=== PATIENT | female | born 1970 | race Caucasian/White ===

== ENCOUNTER → 2016-08-18 | Outpatient (CLI) | payer BC ==
[~2016-08-18] MED LIST: AMOX-355 PO; BC PILL PO; HYDR1TAB PO
--- NOTE | 2016-08-20 19:11 | Diagnostic Imaging Report ---
Bilateral screening mammogram The current study was also evaluated with a Computer Aided Detection (CAD) system. Indication: Screening. No current complaints stated on the questionnaire. COMPARISON: 07/18/15. FINDINGS: The breasts are composed of heterogeneously dense parenchyma which may decrease mammographic sensitivity. There is no mass, architectural distortion or suspicious cluster of calcifications. Biopsy clip in the outer aspect of the left breast is seen. Allowing for technique and positional differences, no suspicious change is seen. IMPRESSION: No significant change. ACR BI-RADS Category 2: Benign findings. Result letter will be mailed to the patient. Note: At least 10% of breast cancer is not imaged by mammography. Dictated by: Dictated on workstation # [id number]
== END ==
LOC: RAD 10:25
PROVIDERS: ATTEND Internal Medicine
DX: Z12.31 Encounter for screening mammogram for malignant neoplasm of breast (principal)
CPT/HCPCS: 77067

== ENCOUNTER → 2017-10-20 | Outpatient (CLI) | payer BC ==
--- NOTE | 2017-10-21 12:03 | Diagnostic Imaging Report ---
INDICATION: Routine screening. Comparison is made with prior study from 08/18/2016 and 07/18/2015. The current study was also evaluated with a Computer Aided Detection (CAD) system. 2-D and 3-D bilateral screening mammography with CAD was performed. The parenchymal pattern is stable. There is a biopsy clip in the outer left breast. No new mass or malignant appearing microcalcifications are seen. The axillae are unremarkable. IMPRESSION: BI-RADS category 2 No mammographic features suspicious for malignancy are identified. ACR BI-RADS Category 2: Benign findings. Result letter will be mailed to the patient. Note: At least 10% of breast cancer is not imaged by mammography. Dictated by: Dictated on workstation # [id number]
== END ==
LOC: RAD 15:46
PROVIDERS: ATTEND Internal Medicine
DX: Z12.31 Encounter for screening mammogram for malignant neoplasm of breast (principal)
CPT/HCPCS: 77067

== ENCOUNTER → 2018-10-21 | Outpatient (CLI) | payer BC ==
--- NOTE | 2018-10-24 10:14 | Diagnostic Imaging Report ---
INDICATION: Routine screening. Comparison is made with prior mammogram from 10/20/2017 and 08/18/2016. 2-D and 3-D bilateral screening mammography was performed with a Computer Aided Detection (CAD) system. FINDINGS: Both breasts are heterogeneously dense, limiting the sensitivity of mammography. Intraparenchymal lymph node in the upper-outer right breast is noted. A small intraparenchymal lymph node upper outer left breast is also seen. A biopsy clip in the left breast is again noted. No new mass or malignant appearing microcalcifications are seen. Axillae are unremarkable. IMPRESSION: No mammographic features suspicious for malignancy are identified. ACR BI-RADS Category 2: Benign findings. Result letter will be mailed to the patient. Note: At least 10% of breast cancer is not imaged by mammography. Dictated by: Dictated on workstation # [id number]
== END ==
LOC: RAD 15:27
PROVIDERS: ATTEND Internal Medicine
DX: Z12.31 Encounter for screening mammogram for malignant neoplasm of breast (principal)
CPT/HCPCS: 77067

== ENCOUNTER → 2021-06-05 | Outpatient (CLI) | payer BC ==
--- NOTE | 2021-06-06 09:35 | Diagnostic Imaging Report ---
INDICATION: Routine screening. COMPARISON is made with prior mammograms from 10/21/2018 and 10/20/2017. 2-D and 3-D bilateral screening mammography was performed with CAD. Both breasts are heterogeneously dense, limiting the sensitivity of mammography. Biopsy marker clip in the left breast is again noted. There are intraparenchymal lymph nodes in the upper and outer aspects of both breasts. No spiculated mass or malignant-appearing microcalcifications are seen. Axillae are unremarkable. IMPRESSION: BI-RADS Category 2. No mammographic features suspicious for malignancy are identified. ACR BI-RADS Category 2: Benign findings. Result letter will be mailed to the patient. Note: At least 10% of breast cancer is not imaged by mammography. Dictated by: Dictated on workstation # [id number]
== END ==
LOC: RAD 15:30
PROVIDERS: ATTEND Internal Medicine
DX: Z12.31 Encounter for screening mammogram for malignant neoplasm of breast (principal)
CPT/HCPCS: 77063; 77067

== ENCOUNTER → 2021-09-05 | Outpatient (CLI) | payer BC ==
--- NOTE | 2021-09-05 15:17 | Diagnostic Imaging Report ---
Indication: Right elbow pain 3 views of the right elbow show no fracture, dislocation or pathologic effusion. IMPRESSION: Negative right elbow. Dictated by: Dictated on workstation # [id number]
--- NOTE | 2021-09-05 15:21 | Diagnostic Imaging Report ---
INDICATION: Left knee pain 3 views of left knee show no fracture, dislocation or other acute abnormalities. IMPRESSION: Negative left knee Dictated by: Dictated on workstation # [id number]
== END ==
LOC: RAD
PROVIDERS: ATTEND Internal Medicine
DX: M25.521 Pain in right elbow (principal); M25.562 Pain in left knee
CPT/HCPCS: 73080; 73564

== ENCOUNTER → 2021-09-11 | Outpatient (CLI) | payer BC | LOC: ORTHO 09:34 | PROVIDERS: ATTEND Orthopaedic Surgery | DX: S50.01XA Contusion of right elbow, initial encounter (principal); M70.52 Other bursitis of knee, left knee; X58.XXXA Exposure to other specified factors, initial encounter | CPT/HCPCS: 99203 ==

== ENCOUNTER → 2022-02-10 | Outpatient (CLI) | payer BC ==
--- NOTE | 2022-02-10 09:56 | Diagnostic Imaging Report ---
EXAMINATION: US Abdomen limited. TECHNIQUE: Multiple real-time grayscale images were obtained over the right upper quadrant in various projections. REASON FOR EXAM: Periumbilical pain. COMPARISON: None. FINDINGS: The liver is normal in size and shape. The liver echogenicity is increased. There are no focal lesions. No intrahepatic biliary dilatation is present. The common bile duct is not dilated and measures 5 mm. The main portal vein is hepatopedal. No ascites is seen in the upper abdomen. There is no evidence of cholelithiasis, gallbladder wall thickening or pericholecystic fluid. Sonographic Borjas's sign is negative. The pancreas is not well visualized due to overlying bowel gas. The visualized portions of the IVC and aorta appear normal. The right kidney measures approximately 10.4 cm in length and has a normal appearance. IMPRESSION: 1. Hepatic steatosis. No focal hepatic lesions or ascites. 2. No evidence of cholelithiasis or acute cholecystitis. Dictated by: Dictated on workstation # [id number]
== END ==
LOC: RAD 07:15
PROVIDERS: ATTEND Internal Medicine
DX: K76.0 Fatty (change of) liver, not elsewhere classified (principal); K80.66 Calculus of gallbladder and bile duct with acute and chronic cholecystitis without obstruction
CPT/HCPCS: 76705

== ENCOUNTER → 2022-03-05 | Outpatient (CLI) | payer BC ==
[~2022-03-05] MED LIST changes: +CATHETER FLUSH 10 ML SYR IVP PRN
--- NOTE | 2022-03-05 11:35 | Diagnostic Imaging Report ---
INDICATION: Abdominal pain. TECHNIQUE: Acquisitions were acquired over the abdomen after administration of 5.47 mCi of technetium 99m Choletec. After 45 minutes the patient ingested ensure and ejection fraction was performed. FINDINGS: There is homogeneous uptake of isotope throughout the liver. Significant accumulation within the gallbladder by 45 minutes. Free flow of activity in the small bowel. Ejection fraction was calculated to be 19.1% IMPRESSION: No evidence of cystic duct obstruction however there is an abnormally low ejection fraction of 19.1% Dictated by: Dictated on workstation # [id number]
== END ==
LOC: CARD 09:15
PROVIDERS: ATTEND Internal Medicine
DX: R10.13 Epigastric pain (principal)
CPT/HCPCS: 78227; A9537

== ENCOUNTER 2022-03-19 05:37 | Outpatient (CLI) | payer BC ==
[~2022-03-19] VITALS: Ht 175.3 cm; Wt 106.0 kg
[~2022-03-19 05:37] MED LIST changes: -CATHETER FLUSH 10 ML SYR IVP PRN
[2022-03-20] MEDS ORDERED: DULO20CA PO (10:15)
[2022-03-20] MEDS ORDERED: PANT40TA52 PO (10:15)
== END 2022-03-20 10:22 ==
LOC: PREOP 05:37
PROVIDERS: ATTEND Surgery
DX: Z01.818 Encounter for other preprocedural examination (principal)

== ENCOUNTER 2022-03-25 07:33 | Day surgery (SDC) | payer BC ==
[~2022-03-25] VITALS: Ht 175.3 cm; Wt 106.0 kg
[2022-03-25] VITALS (11 sets, daily range): BP systolic 104–144; BP diastolic 48–80
[~2022-03-25 07:33] MED LIST changes: +DULO20CA PO; +PANT40TA52 PO
[2022-03-25] MEDS ORDERED: LIDOCAINE/EPI 1%-1:100,000 (XYLOCAINE) 10 ML ONE (08:08)
[2022-03-25] MEDS ORDERED: ceFAZolin INJECTION 2,000 MG in NS (IVPB) 50 ML IV ONE (08:15)
[2022-03-25] MEDS: LACTATED RINGERS 1,000 ML IV PRN ×2 (08:17→10:36)
[2022-03-25] MEDS ORDERED: proPOfol 200 MG/20 ML (DIPRIVAN) VIAL IV ONE ×2 (08:26→10:24)
[2022-03-25] MEDS ORDERED: ONDANSETRON 4 MG/2 ML (SDV) Z0FRAN ONE (08:26)
[2022-03-25] MEDS ORDERED: NEOSTIGMINE 3 MG/3 ML VIAL ONE (08:26)
[2022-03-25] MEDS ORDERED: LIDOCAINE PF 2% 5 ML (XYLOCAINE) VIAL ONE (08:26)
[2022-03-25] MEDS ORDERED: ROCURONIUM 10 MG/ML 5 ML SYRINGE IV ONE (08:26)
[2022-03-25] MEDS ORDERED: GLYCOPYRROLATE 0.2 MG/ML (ROBINUL) 2 ML VIAL ONE (08:26)
[2022-03-25] MEDS ORDERED: MIDAZOLAM 2 MG/2 ML (VERSED) VIAL ONE (08:27)
[2022-03-25] MEDS ORDERED: fentaNYL INJ 100 MCG/2 ML AMP ONE ×2 (08:27→10:31)
--- NOTE | 2022-03-25 09:25 | Progress Note-Pre Operative ---
Pre-Operative Progress Note Date of Available H&P: Mar 09, 2022 Date H&P Reviewed: Mar 25, 2022 Time H&P Reviewed: 09:26 History & Physical: H&P Reviewed, Patient Examed, No changes noted Pre-Operative Diagnosis: biliary dyskinesia LEROY JARA DO Mar 25, 2022 09:25
[2022-03-25] MEDS ORDERED: HYDROmorphone 2 MG/ML VIAL (DILAUDID) ONE (10:00)
[2022-03-25] MEDS ORDERED: KETOROLAC 30 MG/ML VIAL ONE (10:29)
[2022-03-25] MEDS ORDERED: SEVOFLURANE (ULTANE) 15 ML INHAL SOLN ONE (10:33)
[2022-03-25] MEDS ORDERED: HYDROmorphone 2 MG/ML VIAL (DILAUDID) IV ONE (11:00)
[2022-03-25] MEDS: ONDANSETRON 4 MG/2 ML (SDV) Z0FRAN IVP PRN ×2 (11:06→11:52)
[2022-03-25] MEDS ORDERED: ACHD5005 PO (11:08)
[2022-03-25] MEDS ORDERED: DOCU-143 PO (11:08)
--- NOTE | 2022-03-25 11:09 | Discharge Inst-Simple/Standard ---
Discharge Inst-Standard Discharge Medications New, Converted or Re-Newed RX: Transmitted to Pharmacy Patient Instructions/Follow Up Plan of Care/Instructions/FU: 2 weeks Daisha Activity as Tolerated: No Discharge Diet: Regular Diet Other Inst to Patient Verification and Attestation of Medical Student E/M Service A medical student performed and documented this service in my presence. I reviewed and verified all information documented by the medical student and made modifications to such information, when appropriate. I personally performed the physical exam and medical decision making. Leroy Ashton, Mar 25, 2022,11:11 LEROY ASHTON DO Mar 25, 2022 11:09
--- NOTE | 2022-03-25 11:16 | Progress Note-Post Operative ---
Post-Operative Progess Note Surgeon (s)/Oil Refinery Process Technician (s) Surgeon LEROY JARA DO Oil Refinery Process Technician: Dr. Bryson to assist in retraction dissection and closure. Pre-Operative Diagnosis biliary dyskinesia Post-Operative Diagnosis same Procedure & Operative Findings Date of Procedure 03/25/22 Procedure Performed/Findings PROCEDURE: Laparoscopic cholecystectomy with intraoperative cholangiogram. COMPLICATIONS: None. PROCEDURE: The patient was taken to the operating suite and was prepped and draped in sterile fashion. A surgical pause was performed. Just superior to the umbilicus, a 12 mm incision was made. Dissection was taken down to the fascia, which was then scored and grasped with a Max and the abdomen was then entered. A 0 Vicryl suture was placed in a fyyuya-xz-yzsgb fashion and a Jacob trocar was placed and secured. Pneumoperitoneum was achieved. A 5mm trochar place in the subxyphoid and 2 in the right upper quadrant. The gallbladder was then grasped and elevated. Adhesions to the gallbladder were taken down with cautery. The cystic duct, and cystic artery were then dissected out. Clip was placed on the distal portion of the cystic duct which was then partially transected. An arrow catheter was inserted into the duct. The cholangiogram was then performed. No filing defects and contrast made its way into the duodenum. Catheter removed. Clips were placed on proximal portion of the cystic duct and then the duct was then transected. Clips were placed along the proximal and distal portion of the cystic artery which was then transected. Hook cautery was used to dissect the gallbladder from the gallbladder fossa achieving hemostasis. The gallbladder was placed in an Endobag and removed through the 12 mm trocar site. The abdomen was then reinspected. Copious amounts of irrigation were used to irrigate the abdomen and there were no signs of active bleeding. Hemostasis had been achieved. The 12 mm fascial defect was then closed with 0 Vicryl suture that had been placed in a afxymh-gq-cwhgq fashion. The abdomen was then desufflated, the trocars were removed. The abdomen was then washed and dried. The skin was then closed using 4-0 Monocryl in a subcuticular fashion. The abdomen was washed and dried and Skin Affix was place over incisions. Patient tolerated the procedure well without any complications and was taken to the recovery room in stable condition. Anesthesia Type general Estimated Blood Loss Estimated blood loss (mL): minimal Specimens/Packing Specimens Removed gallbladder LEROY JARA DO Mar 25, 2022 11:16
--- NOTE | 2022-03-25 12:31 | Anesthesia-General Post-Op ---
General Patient Condition Mental Status/LOC: Same as Preop Cardiovascular: Satisfactory Nausea/Vomiting: Absent Respiratory: Satisfactory Pain: Controlled Complications: Absent Post Op Complications Complications None Follow Up Care/Instructions Patient Instructions None needed. Anesthesia/Patient Condition Patient Condition Patient is doing well, no complaints, stable vital signs, no apparent adverse anesthesia problems. No complications reported per nursing. D/C home per [facility] [place]: Yes JANE CARBAJAL CRNA Mar 25, 2022 12:31
--- NOTE | 2022-03-25 18:16 | Diagnostic Imaging Report ---
Indication: Intraoperative cholangiogram. 3 seconds of fluoroscopy time were utilized during intraoperative cholangiography. Submitted images showed opacification of the common hepatic and common bile ducts. No filling defect or stricture. Impression: No pathological finding revealed that the images submitted from intraoperative cholangiography. Dictated by: Dictated on workstation # [id number]
== END 2022-03-25 13:05 ==
LOC: SDC 07:33
PROVIDERS: ATTEND Surgery
DX: K81.1 Chronic cholecystitis (principal); K82.8 Other specified diseases of gallbladder; K21.9 Gastro-esophageal reflux disease without esophagitis; Z68.35 Body mass index [BMI] 35.0-35.9, adult
CPT/HCPCS: 76000; 87081

== ENCOUNTER → 2022-06-09 | Outpatient (CLI) | payer BC ==
--- NOTE | 2022-06-03 21:10 | HISTORY AND PHYSICAL ---
DATE OF SERVICE: 06/09/2022 PANENDOSCOPY HISTORY AND PHYSICAL HISTORY OF PRESENT ILLNESS: The patient is a 51-year-old white female referred by Dr. Akers for screening colonoscopy. This will be her first procedure. She is also being referred for diagnostic EGD as she reports a three-month history of intermittent dysphagia to solids with increase in her reflux symptoms. She is still having intermittent dysphagia to solids despite improvement in reflux symptoms with the initiation of pantoprazole about three months ago. She reports no change in weight. Denies melena, change in bowel habit or bright red blood per rectum. PAST MEDICAL HISTORY: Significant for obesity. MEDICATIONS: Her only medication is pantoprazole. PAST SURGICAL HISTORY: She had cholecystectomy for acalculous cholecystitis in 03/2022. She has noticed a firm area adjacent to the umbilical incision since that time without significant tenderness. She in earlier 2021 underwent TAHBSO at which time they did an elective appendectomy for reported benign disease. FAMILY HISTORY: Her brother has had several colon polyps removed. She is not aware of any family history for GI tract malignancy including colon cancer or esophageal cancer. Mother is living at the age of 76 with no health problems. Father of what was felt to be likely massive heart attack at the age of 75. SOCIAL HISTORY: She works at [employer] in the [employer]. She has no past smoking history and occasional small volume alcohol intake. REVIEW OF SYSTEMS: CONSTITUTIONAL: Denies night sweats, chills, fever or change in weight. PULMONARY: Denies cough, wheezing or shortness of breath. CARDIOVASCULAR: Denies orthopnea, PND, pedal edema or syncope. GASTROINTESTINAL: As noted in the HPI. PHYSICAL EXAMINATION: GENERAL: Reveals a pleasant white female in no acute distress. VITAL SIGNS: Weight 244 pounds, blood pressure 120/72. HEENT: Unremarkable. Sclerae nonicteric. CHEST: Clear to auscultation. CARDIOVASCULAR: Reveals a regular rate and rhythm without murmur, S3 or S4. Oral cavity clear. No evidence for exudates. ABDOMEN: Soft, supple without mass or organomegaly. Epigastric discomfort to palpation is present without rebound or guarding. EXTREMITIES: Show no cyanosis, clubbing or edema. Electronic medical record was reviewed. Abdominal sonogram was unremarkable except for hepatic steatosis. Following HIDA scan revealed a low ejection fraction as I recall around 19% without obstruction. ASSESSMENT AND PLAN: The patient is being set up for screening colonoscopy as well as diagnostic EGD due to history of reflux and dysphagia, which has been refractory to PPI therapy. Prep instructions were given and questions were answered. Thank you for the referral of this pleasant lady. Job ID: [id number] DocumentID: [id number] Dictated Date: 06/03/2022 17:12:57 Service Station Operator Date: 06/03/2022 17:53:00 Dictated By: PENG MARIE MD [facility]
[~2022-06-09] MED LIST changes: +ACHD5005 PO; +DOCU-143 PO
--- NOTE | 2022-06-09 18:30 | Diagnostic Imaging Report ---
Indication: Routine screening. Comparison is made with prior mammograms 06/05/2021 and 10/21/2018. 2-D and 3-D bilateral screening mammography was performed with CAD. Both breasts are heterogeneously dense, limiting the sensitivity of mammography. Benign nodules outer portions of both breasts are stable. There is a biopsy clip in the outer left breast. No spiculated mass or malignant-appearing microcalcifications are seen. Axillae are unremarkable. IMPRESSION: BI-RADS Category 2. No mammographic features suspicious for malignancy are identified. ACR BI-RADS Category 2: Benign findings. Result letter will be mailed to the patient. Note: At least 10% of breast cancer is not imaged by mammography. Dictated by: Dictated on workstation # [id number]
== END ==
LOC: RAD 15:30
PROVIDERS: ATTEND Internal Medicine
DX: Z12.31 Encounter for screening mammogram for malignant neoplasm of breast (principal)
CPT/HCPCS: 77063; 77067

== ENCOUNTER 2022-06-10 05:36 | Outpatient (CLI) | payer BC ==
[~2022-06-10] VITALS: Ht 175.3 cm; Wt 110.7 kg
== END 2022-06-10 09:59 | disposition home or self-care (01) ==
LOC: PREOP 05:36
PROVIDERS: ATTEND Internal Medicine
DX: Z01.818 Encounter for other preprocedural examination (principal)

== ENCOUNTER 2022-06-19 07:28 | Day surgery (SDC) | payer BC ==
[~2022-06-19] VITALS: Ht 175.3 cm; Wt 110.7 kg
[2022-06-19] MEDS ORDERED: LACTATED RINGERS 1,000 ML IV STA (07:44)
--- NOTE | 2022-06-19 07:44 | Pre-Op Note & Conscious Sedat ---
Pre-Operative Progress Note Date H&P Reviewed: Jun 19, 2022 Time H&P Reviewed: 07:43 History & Physical: H&P Reviewed, Patient Examed, No changes noted Pre-Op Diagnosis: screening colon dysphagia Conscious Sedation Pre-Proced ASA Score 2 For ASA 3 and 4: Consider anesthesia and medical clearance. Also, for patients with a history of failed moderate sedation consider anesthesia. Airway Lungs Heart ASA score ASA 1: a normal healthy patient ASA 2: a patient with a mild systemic disease (mid diabetes, controlled hypertension, obesity ASA 3: a patient with a severe systemic disease that limits activity (angina, COPD, prior Myocardial infarction) ASA 4: a patient with an incapacitating disease that is a constant threat to life (CHF, renal failure) ASA 5: a moribund patient not expected to survive 24 hrs. (ruptured aneurysm) ASA 6: a declared brain- patient whose organs are being harvested. For emergent operations, add the letter E after the classification Mallampati Classification Grade 2 Sedation Plan Analgesia, Amnesia, Plan communicated to team members, Discussed options with patient/fam, Discussed risks with patient/fam The patient is an appropriate candidate to undergo the planned procedure, sedation, and anesthesia. The patient immediately re-assessed prior to indication. PENG MARIE MD Jun 19, 2022 07:44
[2022-06-19 07:45] VITALS: BP 133/82
[2022-06-19] MEDS ORDERED: HURRICAINE EXT TUBE (BENZOCAINE) XX PRN (07:45)
[2022-06-19] MEDS ORDERED: MIDAZOLAM 2 MG/2 ML (VERSED) VIAL ONE (08:18)
[2022-06-19 08:56] VITALS: BP 111/60
--- NOTE | 2022-06-19 08:56 | Progress Note-Post Operative ---
Post-Procedure Note Physician (s)/Vp Site (s) Physician PENG MARIE MD Pre-Procedure Diagnosis Pre-Procedure Diagnosis: screening colon dysphagia Post-Procedure Diagnosis Post-operative diagnosis: The upper endoscope was inserted into the oral cavity and under direct visualization the esophagus is intubated. The endoscope was passed down the esophagus through the stomach into the second portion of the duodenum. A careful inspection was made to on endoscopic withdrawal. Findings: Posterior pharynx epiglottis arytenoid aperture and true and false vocal folds were unremarkable. The proximal mid and distal esophagus was unremarkable there was no evidence for intrinsic or extrinsic compression the Z-line was distinct with no evidence for hiatal hernia formation. Biopsies were obtained from the distal esophagus to rule out eosinophilic esophagitis. The cardia fundus antrum pylorus pyloric channel duodenal bulb and second portion were unremarkable. Assessment: Normal EGD with no evidence for intrinsic or extrinsic compression of the esophagus. Biopsies were obtained to rule out eosinophilic esophagitis. If these are normal suspect intermittent spasm discussed the importance of careful attention to mastication and slowing down eating. We then proceeded with colonoscopy. Prior to undergoing colonoscopy digital rectal evaluation was performed. Anal sphincter tone was normal and the perianal reflexes intact. There are no evidence for internal or external hemorrhoids. Patient had several redundant perianal folds with no gross evidence to suggest trauma. No abnormalities noted on digital inspection anal canal or distal rectal vault. The colonoscope was then inserted into the rectum and under direct visualization advanced to the cecum. The cecum was identified by identification of the ileocecal valve and the cecal strap. Photographic documentation was obtained. Careful inspection was made as the colonoscope withdrawn. Quality the prep was good. Findings there are no evidence for internal or external hemorrhoids and the rectum was unremarkable. Present the distal sigmoid colon was a 5 mm sessile hyperplastic appearing polyp it was biopsied and ablated and submitted for us to pathology. There was no subsequent blood loss this is accomplished with hot forceps. The remainder the sigmoid colon was unremarkable with no evidence of diverticular disease. The descending colon splenic flexure transverse colon hepatic flexure ascending colon and cecum were unremarkable. Assessment: 1. One 5 mm sessile hyperplastic appearing polyp was removed via hot forceps from the distal sigmoid colon. This is an otherwise normal colonoscopy to cecum. As long as there are no surprises on histopathology report would advise consideration for repeat screening colonoscopy in 10 years. CC: PENG Sahu MD Jun 19, 2022 08:56
[2022-06-19 09:01] VITALS: BP 133/68
[2022-06-19 09:06] VITALS: BP 144/72
[2022-06-19 09:10] VITALS: BP 144/72
[2022-06-19 09:33] VITALS: BP 144/72
--- NOTE | 2022-06-19 10:03 | Anesthesia-General Post-Op ---
MAC Patient Condition Mental Status/LOC: Same as Preop Cardiovascular: Satisfactory Nausea/Vomiting: Absent Respiratory: Satisfactory Pain: Controlled Complications: Absent Post Op Complications Complications None Follow Up Care/Instructions Patient Instructions None needed. Anesthesiology Discharge Order Discharge Order Patient was doing well this morning after the procedure with no complaints, stable vital signs, no apparent adverse anesthesia problems. No complications reported per nursing. VITALIY COLLINS DO Jun 19, 2022 10:03
--- NOTE | 2022-06-24 14:53 | HISTORY AND PHYSICAL ---
DATE OF SERVICE: 06/19/2022 PANENDOSCOPY HISTORY AND PHYSICAL HISTORY OF PRESENT ILLNESS: The patient is a 51-year-old white female referred by Dr. Akers for screening colonoscopy. This will be her first procedure. She is also being referred for diagnostic EGD as she reports a three-month history of intermittent dysphagia to solids with increase in her reflux symptoms. She is still having intermittent dysphagia to solids despite improvement in reflux symptoms with the initiation of pantoprazole about three months ago. She reports no change in weight. Denies melena, change in bowel habit or bright red blood per rectum. PAST MEDICAL HISTORY: Significant for obesity. MEDICATIONS: Her only medication is pantoprazole. PAST SURGICAL HISTORY: She had cholecystectomy for acalculous cholecystitis in 03/2022. She has noticed a firm area adjacent to the umbilical incision since that time without significant tenderness. She in earlier 2021 underwent TAHBSO at which time they did an elective appendectomy for reported benign disease. FAMILY HISTORY: Her brother has had several colon polyps removed. She is not aware of any family history for GI tract malignancy including colon cancer or esophageal cancer. Mother is living at the age of 76 with no health problems. Father of what was felt to be likely massive heart attack at the age of 75. SOCIAL HISTORY: She works at [employer] in the [employer]. She has no past smoking history and occasional small volume alcohol intake. REVIEW OF SYSTEMS: CONSTITUTIONAL: Denies night sweats, chills, fever or change in weight. PULMONARY: Denies cough, wheezing or shortness of breath. CARDIOVASCULAR: Denies orthopnea, PND, pedal edema or syncope. GASTROINTESTINAL: As noted in the HPI. PHYSICAL EXAMINATION: GENERAL: Reveals a pleasant white female in no acute distress. VITAL SIGNS: Weight 244 pounds, blood pressure 120/72. HEENT: Unremarkable. Sclerae nonicteric. CHEST: Clear to auscultation. CARDIOVASCULAR: Reveals a regular rate and rhythm without murmur, S3 or S4. Oral cavity clear. No evidence for exudates. ABDOMEN: Soft, supple without mass or organomegaly. Epigastric discomfort to palpation is present without rebound or guarding. EXTREMITIES: Show no cyanosis, clubbing or edema. Electronic medical record was reviewed. Abdominal sonogram was unremarkable except for hepatic steatosis. Following HIDA scan revealed a low ejection fraction as I recall around 19% without obstruction. ASSESSMENT AND PLAN: The patient is being set up for screening colonoscopy as well as diagnostic EGD due to history of reflux and dysphagia, which has been refractory to PPI therapy. Prep instructions were given and questions were answered. Thank you for the referral of this pleasant lady. Job ID: [id number] DocumentID: [id number] Dictated Date: 06/03/2022 17:12:57 Network/Telecom Engineer Date: 06/03/2022 17:53:00 Dictated By: PENG MARIE MD <Dictated by PENG MARIE MD> <Electronically signed by PENG MARIE MD> 06/04/22 1626 MTDD
--- NOTE | 2022-06-24 15:50 | Physician Query Clarification ---
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 The primary differential diagnosis includes reflux esophagitis and eosinophilic esophagitis, Correlation with endoscopic appearance and clinical features is essential. Question: ? Please document a response, 1. Reflux esophagitis 2. Eosinophilic esophagitis 3. Other, with explanation of the clinical findings. 4. Clinically undetermined, no explanation for the clinical findings. Is is appropriate for a provider to add additional documentation (addenda) to the record to explain the evaluation & care up to 30 days post-discharge. See [facility] and Patient Record Guidelines below. The [facility] Chapter Record of Care, Standard; RC.01.03.01EP 1: "The hospital has a written policy that required timely entry of information into the medical record." According to [facility] Patient Record Guidelines, ARTICLE XXI. CORRECTIONS AND ADDENDA, Modifications (addenda amendments, corrections and retractions) should be made timely and no later than regulatory requirements for record completion (i.e. 30 days post discharge). Official coding guidelines require coders to query the physician for agreement with pathology findings that occur during the encounter. PHYSICIAN RESPONSE Pathology Report Findings: Yes,agree w/path dx as documented Explanation of clincal finding can code eosinophilic esophagitis In responding to this query, please exercise your independent professional judgment. The purpose of this communication is to more accurately reflect the complexity of your patients condition. The fact that a question is asked does not imply that any particular answer is desired or expected. Thank you for your timely response to this clarification. Requestors name: Monse Vital Signs THIS PHYSICIAN QUERY FORM IS A PERMANENT PART OF THE MEDICAL RECORD MONSE DANIEL Jun 24, 2022 15:50 PENG MARIE MD Jun 26, 2022 07:58
== END 2022-06-19 09:37 | disposition home or self-care (01) ==
LOC: ENDO 07:28
PROVIDERS: ATTEND Internal Medicine
DX: Z12.11 Encounter for screening for malignant neoplasm of colon (principal); K63.5 Polyp of colon; K20.0 Eosinophilic esophagitis; K21.9 Gastro-esophageal reflux disease without esophagitis; E66.9 Obesity, unspecified; Z68.36 Body mass index [BMI] 36.0-36.9, adult; Z28.310 Unvaccinated for COVID-19; Z79.899 Other long term (current) drug therapy
CPT/HCPCS: 88305

== ENCOUNTER → 2023-01-06 | Outpatient (CLI) | payer BC ==
[~2023-01-06] MED LIST changes: +CATHETER FLUSH 10 ML SYR IVP PRN
[2023-01-06 08:00] VITALS: BP 134/67
--- NOTE | 2023-01-06 15:40 | Cardiology Stress Test Report ---
Stress Test Report Date of Procedure/Referring: Date of Procedure: Jan 06, 2023 PCP Dayan Akers DO Admitting Physician Admitting Physician: Attending Physician: Dayan Akers DO Baseline Vital Signs Vital Signs Date Time Temp Pulse Resp B/P (MAP) Pulse Ox O2 Delivery O2 Flow Rate FiO2 01/06/23 08:00 62 134/67 (89) Summary: Patient receive a resting and stress dose of Myoview, images were acquired and reviewed in the short axis view, horizontal long axis view and vertical long axis view. TID: 0.85 SSS: 0 SDS: 0 EF: 75 No ischemia or infarction noted on SPECT images Normal left ventricular size, ejection fraction 75% Copy Copies To 1: DAYAN AKERS BASHAR J MD Jan 06, 2023 15:40
== END ==
LOC: CARD 07:00
PROVIDERS: ATTEND Internal Medicine
DX: R07.9 Chest pain, unspecified (principal)
CPT/HCPCS: 78452; 93017; A9502